=== PATIENT | male | born 1945 | race Caucasian/White ===

== ENCOUNTER 2018-07-21 01:09 | Inpatient (IN) | payer MEDICARE, OTHER ==
[~2018-07-21] VITALS: Ht 167.6 cm; Wt 66.6 kg
[2018-07-21 02:06] VITALS: BP 114/55
[2018-07-21] MEDS ORDERED: OXYB15TA PO (03:34)
[2018-07-21] MEDS ORDERED: ROSU10TA2 PO (03:34)
[2018-07-21] MEDS ORDERED: SULF1TAB23 PO (03:34)
[2018-07-21] MEDS ORDERED: CHOL200040 PO (03:34)
[2018-07-21] MEDS ORDERED: FENO145T30 PO (03:34)
[2018-07-21] MEDS ORDERED: ASPI325T17 PO (03:34)
[2018-07-21] MEDS ORDERED: OMEG1CAP6 PO (03:34)
[2018-07-21] MEDS ORDERED: MULT-658 PO (03:34)
[2018-07-21] MEDS ORDERED: PANT20TA3 PO (03:34)
[2018-07-21] MEDS ORDERED: PREG100C PO (03:34)
[2018-07-21] MEDS ORDERED: morphine SULFATE 10 MG/ML, 1ML IVPush PRN (05:30)
[2018-07-21] MEDS ORDERED: ACETAMINOPHEN 325 MG TABLET PO PRN (05:30)
[2018-07-21] MEDS ORDERED: POLYETHYLENE GLYCOL 17 GM PACKET PO PRN (05:30)
[2018-07-21] MEDS ORDERED: DOCUSATE 100 MG CAPSULE PO PRN (05:30)
[2018-07-21] MEDS ORDERED: hydrALAzine 20 MG/ML, 1ML IVPush PRN (05:30)
[2018-07-21] MEDS ORDERED: PROMETHAZINE 25 MG/ML, 1ML IM PRN (05:30)
[2018-07-21] MEDS ORDERED: ONDANSETRON ODT 4 MG PO PRN (05:30)
[2018-07-21] MEDS ORDERED: ONDANSETRON 2MG/ML, 2ML IVPush PRN (05:30)
[2018-07-21] MEDS ORDERED: OXYcodone IR 5MG TABLET PO PRN (05:30)
[2018-07-21] MEDS ORDERED: BISACODYL 10 MG SUPP PR PRN (05:30)
[2018-07-21] MEDS ORDERED: PLEASE ENTER ALLERGIES MC SCH ×2 (06:00→06:30)
[2018-07-21] MEDS ORDERED: HYDROmorphone 1 MG/ML, 1ML INJ IV PRN (06:00)
[2018-07-21] MEDS: D5%-0.9% NACL 1,000 ML IV SCH ×2 (06:22→22:03)
[2018-07-21] MEDS: AMPICILLIN/SULBACTAM 3 GM in SODIUM CHLORIDE 0.9% 100 ML IV SCH ×3 (06:36→17:46)
[2018-07-21 06:38] LABS: MEAN CORPUSCULAR HGB CONC 32.6 g/dL (33.2-36.2); MEAN CORPUSCULAR VOLUME 92.1 fL (81-97); MEAN PLATELET VOLUME 8.3 fL (7.4-10.4); PLATELET COUNT 178 x10^3/uL (130-400); RED BLOOD COUNT 3.96 x10^6/uL (4.38-5.82); RED CELL DISTRIBUTION WIDTH 14.1 % (9.4-14.8)
[2018-07-21 06:48] LABS: INTERNATIONAL NORMALIZED RATIO 1.25 (0.93-1.1)
[2018-07-21 06:51] LABS: ALANINE AMINOTRANSFERASE 25 U/L (12-78); ALBUMIN 2.7 g/dL (3.4-5.0); ANION GAP 9 mmol/L (5-15); CALCIUM 9.2 mg/dL (8.5-10.1); CHLORIDE 108 mmol/L (98-107)
[2018-07-21 06:59] LABS: BASOPHILS # (AUTO) 0.12 x10^3/uL (0-0.1); BASOPHILS % (AUTO) 1 % (0-1); EOSINOPHILS # (AUTO) 0.09 x10^3/uL (0-0.4); EOSINOPHILS % (AUTO) 1 % (1-7); LYMPHOCYTES # (AUTO) 0.78 x10^3/uL (1-3.4); LYMPHOCYTES % (AUTO) 7 % (22-44); MD SCAN; MONOCYTES # (AUTO) 0.49 x10^3/uL (0.2-0.8); MONOCYTES % (AUTO) 4 % (2-9); NEUTROPHILS # (AUTO) 10.01 x10^3/uL (1.8-6.8); NEUTROPHILS % (AUTO) 87 % (42-75)
[2018-07-21 07:00] LABS: ALKALINE PHOSPHATASE 62 U/L (45-117); BILIRUBIN,TOTAL 0.8 mg/dL (0.2-1.0); CHOL/HDL RATIO 1.9; CHOLESTEROL, TOTAL 71 mg/dL (140-239); CREATININE 0.56 mg/dL (0.7-1.3); FREE T4 (FREE THYROXINE) 1.27 ng/dL (0.76-1.46); HDL CHOL % 52 % (26-37); HDL CHOLESTEROL (DIRECT) 37 mg/dL (40-60); LDL CHOLESTEROL,CALCULATED 11 mg/dL (54-169); LDL/HDL RATIO 0.3 (0.5-3.0); THYROID STIMULATING HORMONE 0.448 mIU/L (0.358-3.740); TOTAL PROTEIN 5.9 g/dL (6.4-8.2); TRIGLYCERIDES 116 mg/dL (50-200); VLDL CHOLESTEROL 23 mg/dL (0-25)
[2018-07-21 07:41] VITALS: BP 121/64
[2018-07-21] MEDS: CHOLECALCIFEROL 1,000 UNIT TABLET PO SCH (08:18)
[2018-07-21] MEDS: NICOTINE 7 MG/24 HR PATCH.TD24 TD SCH (08:18)
[2018-07-21] MEDS: MULTIVITAMIN 1 TABLET PO SCH (08:19)
[2018-07-21] MEDS: ASPIRIN 325 MG TABLET PO SCH (08:19)
[2018-07-21] MEDS: OMEGA-3/FISH OIL CAPSULE PO SCH ×2 (08:19→16:19)
[2018-07-21] MEDS: PANTOPRAZOLE 20MG TABLET PO SCH (08:19)
[2018-07-21] MEDS: PREGABALIN 100 MG CAPSULE PO SCH ×2 (08:19→20:50)
[2018-07-21] MEDS: OXYBUTYNIN CHLORIDE 5 MG TABLET PO SCH ×3 (08:19→20:50)
[2018-07-21] MEDS: HEPARIN 5,000 UNITS/ML, 1ML SQ SCH ×2 (08:22→16:19)
[2018-07-21 08:24] LABS: HEMOGLOBIN A1C 5.1 % (4.2-6.3)
[2018-07-21] MEDS ORDERED: POTASSIUM CHLORIDE 20 MEQ TAB.ER.PRT PO ONE (11:30)
[2018-07-21] MEDS ORDERED: KETOROLAC 30 MG/1 ML ONE (13:09)
[2018-07-21] MEDS ORDERED: KETOROLAC 60 MG/2 ML IVPush ONE (13:30)
[2018-07-21] MEDS ORDERED: KETOROLAC 30 MG/1 ML IVPush ONE (13:30)
[2018-07-21] MEDS ORDERED: HYDROmorphone 2 MG/ML, 1ML ONE (14:00)
[2018-07-21 15:08] VITALS: BP 117/58
[2018-07-21] MEDS ORDERED: FENOFIBRATE 145 MG TABLET PO SCH (16:30)
[2018-07-21] MEDS: HYDROmorphone 2 MG/ML, 1ML IVPush PRN ×2 (17:44→22:03)
[2018-07-21 20:11] VITALS: BP 128/55
[2018-07-21] MEDS ORDERED: ATORVASTATIN 40 MG TABLET PO SCH (21:00)
[2018-07-22 00:14] VITALS: BP 129/51
[2018-07-22] MEDS: HEPARIN 5,000 UNITS/ML, 1ML SQ SCH ×2 (01:18→09:32)
[2018-07-22] MEDS: AMPICILLIN/SULBACTAM 3 GM in SODIUM CHLORIDE 0.9% 100 ML IV SCH ×4 (01:18→23:43)
[2018-07-22 05:29] LABS: MEAN CORPUSCULAR HGB CONC 32.6 g/dL (33.2-36.2); MEAN CORPUSCULAR VOLUME 92.1 fL (81-97); MEAN PLATELET VOLUME 9.4 fL (7.4-10.4); PLATELET COUNT 189 x10^3/uL (130-400); RED BLOOD COUNT 3.83 x10^6/uL (4.38-5.82); RED CELL DISTRIBUTION WIDTH 14.1 % (9.4-14.8)
[2018-07-22 05:38] LABS: ANION GAP 7 mmol/L (5-15); CALCIUM 9.1 mg/dL (8.5-10.1); CHLORIDE 111 mmol/L (98-107)
[2018-07-22 06:09] LABS: BASOPHILS # (AUTO) 0.03 x10^3/uL (0-0.1); BASOPHILS % (AUTO) 0 % (0-1); EOSINOPHILS # (AUTO) 0.15 x10^3/uL (0-0.4); EOSINOPHILS % (AUTO) 1 % (1-7); LYMPHOCYTES # (AUTO) 0.75 x10^3/uL (1-3.4); LYMPHOCYTES % (AUTO) 6 % (22-44); MD SCAN; MONOCYTES # (AUTO) 0.51 x10^3/uL (0.2-0.8); MONOCYTES % (AUTO) 4 % (2-9); NEUTROPHILS # (AUTO) 10.31 x10^3/uL (1.8-6.8); NEUTROPHILS % (AUTO) 88 % (42-75)
[2018-07-22 06:27] VITALS: BP 148/66
[2018-07-22] MEDS: OMEGA-3/FISH OIL CAPSULE PO SCH (08:00)
[2018-07-22] MEDS ORDERED: POTASSIUM CHLORIDE 40 MEQ in SODIUM CHLORIDE 0.9% 500 ML IV ONE (08:00)
[2018-07-22] MEDS: MULTIVITAMIN 1 TABLET PO SCH (09:00)
[2018-07-22] MEDS: CHOLECALCIFEROL 1,000 UNIT TABLET PO SCH (09:00)
[2018-07-22] MEDS: OXYBUTYNIN CHLORIDE 5 MG TABLET PO SCH (09:00)
[2018-07-22] MEDS: ASPIRIN 325 MG TABLET PO SCH (09:00)
[2018-07-22] MEDS: PREGABALIN 100 MG CAPSULE PO SCH (09:00)
[2018-07-22] MEDS: PANTOPRAZOLE 20MG TABLET PO SCH (09:00)
[2018-07-22] MEDS: NICOTINE 7 MG/24 HR PATCH.TD24 TD SCH (09:34)
[2018-07-22] MEDS: D5%-0.9% NACL 1,000 ML IV SCH (11:05)
[2018-07-22] MEDS ORDERED: MAGNESIUM SULFATE PMX 2GM/50ML 50 ML IV ONE (13:30)
[2018-07-22 13:41] VITALS: BP 138/64
[2018-07-22] MEDS: HYDROmorphone 2 MG/ML, 1ML IVPush PRN ×2 (16:04→20:42)
[2018-07-22] MEDS: POTASSIUM CHLORIDE 40 MEQ in D5%-LACTATED RINGERS 1,000 ML IV SCH (17:35)
[2018-07-22] MEDS: FENTANYL 12 MCG PATCH TD SCH (17:35)
[2018-07-22 19:23] VITALS: BP 137/74
[2018-07-23] MEDS: HYDROmorphone 2 MG/ML, 1ML IVPush PRN ×5 (01:01→20:57)
[2018-07-23 01:21] VITALS: BP 148/71
[2018-07-23] MEDS: AMPICILLIN/SULBACTAM 3 GM in SODIUM CHLORIDE 0.9% 100 ML IV SCH ×3 (05:23→17:43)
[2018-07-23] MEDS: POTASSIUM CHLORIDE 40 MEQ in D5%-LACTATED RINGERS 1,000 ML IV SCH (05:23)
[2018-07-23 07:40] VITALS: BP 154/63
[2018-07-23] MEDS: PANTOPRAZOLE 40 MG IV IVPush SCH (09:24)
[2018-07-23] MEDS: NICOTINE 7 MG/24 HR PATCH.TD24 TD SCH (09:25)
[2018-07-23 10:22] LABS: BASOPHILS # (AUTO) 0.03 x10^3/uL (0-0.1); BASOPHILS % (AUTO) 0 % (0-1); EOSINOPHILS # (AUTO) 0.18 x10^3/uL (0-0.4); EOSINOPHILS % (AUTO) 2 % (1-7); LYMPHOCYTES # (AUTO) 0.78 x10^3/uL (1-3.4); LYMPHOCYTES % (AUTO) 8 % (22-44); MD NO; MEAN CORPUSCULAR HEMOGLOBIN 30.8 pg (27.5-34.5); MEAN CORPUSCULAR VOLUME 93.3 fL (81-97); MEAN PLATELET VOLUME 9.1 fL (7.4-10.4); MONOCYTES # (AUTO) 0.49 x10^3/uL (0.2-0.8); MONOCYTES % (AUTO) 5 % (2-9); NEUTROPHILS # (AUTO) 7.94 x10^3/uL (1.8-6.8); NEUTROPHILS % (AUTO) 84 % (42-75); PLATELET COUNT 219 x10^3/uL (130-400); RED BLOOD COUNT 3.92 x10^6/uL (4.38-5.82)
[2018-07-23 10:26] LABS: ANION GAP 4 mmol/L (5-15); CHLORIDE 114 mmol/L (98-107); CREATININE 0.43 mg/dL (0.7-1.3)
[2018-07-23] MEDS ORDERED: POTASSIUM CHLORIDE 40 MEQ in D5%-0.9% NACL 1,000 ML IV SCH (11:00)
[2018-07-23 14:00] VITALS: BP 151/62
[2018-07-23 17:05] VITALS: BP 155/74
[2018-07-23] MEDS: POTASSIUM CHLORIDE 40 MEQ in DEXTROSE 5% 1,000 ML IV SCH (17:43)
[2018-07-23 19:06] VITALS: BP 163/75
[2018-07-23 19:14] LABS: MICROSCOPIC NOT IND
[2018-07-23 19:18] LABS: CULTURE INDICATED? NO
[2018-07-23 21:18] VITALS: BP 157/72
[2018-07-24] MEDS: AMPICILLIN/SULBACTAM 3 GM in SODIUM CHLORIDE 0.9% 100 ML IV SCH ×5 (00:15→23:59)
[2018-07-24] MEDS: HYDROmorphone 2 MG/ML, 1ML IVPush PRN ×7 (00:52→22:19)
[2018-07-24 01:14] VITALS: BP 161/69
[2018-07-24 04:30] LABS: BASOPHILS # (AUTO) 0.02 x10^3/uL (0-0.1); BASOPHILS % (AUTO) 0 % (0-1); EOSINOPHILS # (AUTO) 0.14 x10^3/uL (0-0.4); EOSINOPHILS % (AUTO) 2 % (1-7); LYMPHOCYTES # (AUTO) 0.79 x10^3/uL (1-3.4); LYMPHOCYTES % (AUTO) 10 % (22-44); MD NO; MEAN CORPUSCULAR HEMOGLOBIN 30.8 pg (27.5-34.5); MEAN CORPUSCULAR HGB CONC 33.3 g/dL (33.2-36.2); MEAN CORPUSCULAR VOLUME 92.5 fL (81-97); MEAN PLATELET VOLUME 9.4 fL (7.4-10.4); MONOCYTES # (AUTO) 0.67 x10^3/uL (0.2-0.8); MONOCYTES % (AUTO) 9 % (2-9); NEUTROPHILS # (AUTO) 6.08 x10^3/uL (1.8-6.8); NEUTROPHILS % (AUTO) 79 % (42-75); PLATELET COUNT 201 x10^3/uL (130-400); RED BLOOD COUNT 4.01 x10^6/uL (4.38-5.82); RED CELL DISTRIBUTION WIDTH 13.9 % (9.4-14.8)
[2018-07-24 04:38] LABS: ANION GAP 3 mmol/L (5-15); CALCIUM 9.1 mg/dL (8.5-10.1); CHLORIDE 106 mmol/L (98-107)
[2018-07-24] MEDS: POTASSIUM CHLORIDE 40 MEQ in DEXTROSE 5% 1,000 ML IV SCH ×2 (06:03→18:03)
[2018-07-24 07:10] VITALS: BP 137/59
[2018-07-24] MEDS: NICOTINE 7 MG/24 HR PATCH.TD24 TD SCH (08:39)
[2018-07-24] MEDS: PANTOPRAZOLE 40 MG IV IVPush SCH (08:39)
[2018-07-24 13:20] VITALS: BP 122/57
[2018-07-24] MEDS ORDERED: LIDOCAINE 2%, 6 ML JEL.PF.APP MM ONE (13:35)
[2018-07-24 19:15] VITALS: BP 121/54
[2018-07-25 01:06] VITALS: BP 139/65
[2018-07-25] MEDS: HYDROmorphone 2 MG/ML, 1ML IVPush PRN ×5 (02:14→22:15)
[2018-07-25] MEDS: POTASSIUM CHLORIDE 40 MEQ in DEXTROSE 5% 1,000 ML IV SCH ×2 (04:43→18:18)
[2018-07-25] MEDS: AMPICILLIN/SULBACTAM 3 GM in SODIUM CHLORIDE 0.9% 100 ML IV SCH ×3 (06:02→18:18)
[2018-07-25 06:26] VITALS: BP 133/52
[2018-07-25] MEDS: NICOTINE 7 MG/24 HR PATCH.TD24 TD SCH (10:40)
[2018-07-25] MEDS: PANTOPRAZOLE 40 MG IV IVPush SCH (10:40)
[2018-07-25 12:20] VITALS: BP 142/57
[2018-07-25] MEDS: FENTANYL 12 MCG PATCH TD SCH (15:12)
[2018-07-25 20:10] VITALS: BP 111/63
[2018-07-26] MEDS: AMPICILLIN/SULBACTAM 3 GM in SODIUM CHLORIDE 0.9% 100 ML IV SCH ×4 (00:30→19:51)
[2018-07-26 00:38] VITALS: BP 145/77
[2018-07-26] MEDS: HYDROmorphone 2 MG/ML, 1ML IVPush PRN ×3 (03:37→19:51)
[2018-07-26 04:31] LABS: BASOPHILS # (AUTO) 0.01 x10^3/uL (0-0.1); BASOPHILS % (AUTO) 0 % (0-1); EOSINOPHILS # (AUTO) 0.08 x10^3/uL (0-0.4); EOSINOPHILS % (AUTO) 1 % (1-7); LYMPHOCYTES % (AUTO) 12 % (22-44); MD NO; MEAN CORPUSCULAR HEMOGLOBIN 30.7 pg (27.5-34.5); MEAN CORPUSCULAR HGB CONC 33.4 g/dL (33.2-36.2); MEAN CORPUSCULAR VOLUME 92.2 fL (81-97); MEAN PLATELET VOLUME 9.9 fL (7.4-10.4); MONOCYTES # (AUTO) 0.65 x10^3/uL (0.2-0.8); MONOCYTES % (AUTO) 9 % (2-9); NEUTROPHILS # (AUTO) 5.74 x10^3/uL (1.8-6.8); NEUTROPHILS % (AUTO) 78 % (42-75); PLATELET COUNT 212 x10^3/uL (130-400); RED BLOOD COUNT 4.16 x10^6/uL (4.38-5.82); RED CELL DISTRIBUTION WIDTH 13.6 % (9.4-14.8)
[2018-07-26 04:44] LABS: ANION GAP 2 mmol/L (5-15); CALCIUM 9.2 mg/dL (8.5-10.1); CHLORIDE 102 mmol/L (98-107)
[2018-07-26 04:45] LABS: CREATININE 0.34 mg/dL (0.7-1.3)
[2018-07-26] MEDS: POTASSIUM CHLORIDE 40 MEQ in DEXTROSE 5% 1,000 ML IV SCH ×2 (06:31→20:14)
[2018-07-26 07:32] VITALS: BP 152/73
[2018-07-26] MEDS: NICOTINE 7 MG/24 HR PATCH.TD24 TD SCH (09:58)
[2018-07-26] MEDS: PANTOPRAZOLE 40 MG IV IVPush SCH (09:59)
[2018-07-26 13:43] VITALS: BP 137/73
[2018-07-26] MEDS ORDERED: LIDOCAINE 1%, 20ML ONE (14:33)
[2018-07-26] MEDS ORDERED: LIDOCAINE-MPF 1%, 5ML ONE ×2 (14:33)
[2018-07-26] MEDS ORDERED: LIDOCAINE 2%, 6 ML JEL.PF.APP MM ONE (14:35)
[2018-07-26] MEDS ORDERED: FENTANYL PF 100 MCG/2ML ONE (15:06)
[2018-07-26] MEDS ORDERED: FLUMAZENIL 0.1 MG/1 ML, 5ML ONE (15:06)
[2018-07-26] MEDS ORDERED: MIDAZOLAM 1 MG/ML, 5ML ONE (15:06)
[2018-07-26] MEDS ORDERED: NALOXONE 1 MG/ML, 2ML ONE (15:06)
[2018-07-26] MEDS ORDERED: EPINEPHRINE 1 MG/ML, 1ML ONE (17:28)
[2018-07-26] MEDS ORDERED: BUPIVACAINE/PF 0.5% ONE (17:28)
[2018-07-26 19:57] VITALS: BP 125/78
[2018-07-27] MEDS: HYDROmorphone 2 MG/ML, 1ML IVPush PRN ×6 (00:24→23:52)
[2018-07-27 00:47] VITALS: BP 106/69
[2018-07-27] MEDS: AMPICILLIN/SULBACTAM 3 GM in SODIUM CHLORIDE 0.9% 100 ML IV SCH ×4 (02:37→19:53)
[2018-07-27 04:09] LABS: BASOPHILS # (AUTO) 0.07 x10^3/uL (0-0.1); BASOPHILS % (AUTO) 1 % (0-1); EOSINOPHILS % (AUTO) 1 % (1-7); LYMPHOCYTES # (AUTO) 1.01 x10^3/uL (1-3.4); LYMPHOCYTES % (AUTO) 13 % (22-44); MD NO; MEAN CORPUSCULAR HEMOGLOBIN 30.3 pg (27.5-34.5); MEAN CORPUSCULAR HGB CONC 32.9 g/dL (33.2-36.2); MEAN CORPUSCULAR VOLUME 92.2 fL (81-97); MONOCYTES # (AUTO) 0.65 x10^3/uL (0.2-0.8); MONOCYTES % (AUTO) 9 % (2-9); NEUTROPHILS # (AUTO) 5.77 x10^3/uL (1.8-6.8); NEUTROPHILS % (AUTO) 76 % (42-75); PLATELET COUNT 240 x10^3/uL (130-400); RED BLOOD COUNT 4.23 x10^6/uL (4.38-5.82); RED CELL DISTRIBUTION WIDTH 13.8 % (9.4-14.8)
[2018-07-27 04:21] LABS: ALBUMIN 2.6 g/dL (3.4-5.0); ANION GAP 6 mmol/L (5-15); CALCIUM 9.5 mg/dL (8.5-10.1); CHLORIDE 99 mmol/L (98-107); CREATININE 0.46 mg/dL (0.7-1.3)
[2018-07-27 08:56] VITALS: BP 155/68
[2018-07-27] MEDS: NICOTINE 7 MG/24 HR PATCH.TD24 TD SCH (10:18)
[2018-07-27] MEDS: POTASSIUM CHLORIDE 40 MEQ in DEXTROSE 5% 1,000 ML IV SCH ×2 (10:19→22:55)
[2018-07-27] MEDS: PANTOPRAZOLE 40 MG IV IVPush SCH (10:19)
[2018-07-27 15:44] VITALS: BP 144/71
[2018-07-27] MEDS ORDERED: MAGNESIUM SULFATE PMX 2GM/50ML 50 ML IV ONE (18:00)
[2018-07-27] MEDS ORDERED: GADOBUTROL 7.5 MMOL/7.5 ML PFS ONE (18:23)
[2018-07-27 19:06] VITALS: BP 138/67
[2018-07-28 01:45] VITALS: BP 132/62
[2018-07-28] MEDS: AMPICILLIN/SULBACTAM 3 GM in SODIUM CHLORIDE 0.9% 100 ML IV SCH ×4 (02:10→21:24)
[2018-07-28] MEDS: HYDROmorphone 2 MG/ML, 1ML IVPush PRN ×4 (05:35→20:22)
[2018-07-28 07:46] VITALS: BP 131/57
[2018-07-28] MEDS: POTASSIUM CHLORIDE 40 MEQ in DEXTROSE 5% 1,000 ML IV SCH ×2 (08:31→20:11)
[2018-07-28] MEDS: PANTOPRAZOLE 40 MG IV IVPush SCH (08:37)
[2018-07-28] MEDS: NICOTINE 7 MG/24 HR PATCH.TD24 TD SCH (08:38)
[2018-07-28] MEDS: FENTANYL 12 MCG PATCH TD SCH (13:30)
[2018-07-28 14:13] VITALS: BP 119/68
[2018-07-28 19:58] VITALS: BP 124/73
[2018-07-29 01:43] VITALS: BP 117/68
[2018-07-29] MEDS: AMPICILLIN/SULBACTAM 3 GM in SODIUM CHLORIDE 0.9% 100 ML IV SCH ×2 (03:05→10:17)
[2018-07-29] MEDS: POTASSIUM CHLORIDE 40 MEQ in DEXTROSE 5% 1,000 ML IV SCH ×2 (05:34→21:19)
[2018-07-29] MEDS: HYDROmorphone 2 MG/ML, 1ML IVPush PRN ×3 (05:39→14:13)
[2018-07-29] MEDS: PANTOPRAZOLE 40 MG IV IVPush SCH (08:34)
[2018-07-29] MEDS: NICOTINE 7 MG/24 HR PATCH.TD24 TD SCH (08:34)
[2018-07-29 08:45] VITALS: BP 135/72
[2018-07-29 14:58] VITALS: BP 125/72
[2018-07-29] MEDS ORDERED: BUPIVACAINE/EPI 0.5% 1:200K ONE (17:10)
[2018-07-29] MEDS ORDERED: MIDAZOLAM 1 MG/ML, 2ML ONE ×2 (17:25→17:34)
[2018-07-29] MEDS ORDERED: FENTANYL PF 100 MCG/2ML ONE (17:25)
[2018-07-29] MEDS ORDERED: CEFAZOLIN 1,000 MG ONE (17:35)
[2018-07-29] MEDS ORDERED: DEXAMETHASONE 4 MG/ML, 1ML ONE (17:36)
[2018-07-29] MEDS ORDERED: ROCURONIUM 10MG/ML,5ML ONE (17:36)
[2018-07-29] MEDS ORDERED: PROPOFOL 10 MG/ML, 20ML ONE (17:36)
[2018-07-29] MEDS ORDERED: ONDANSETRON 2MG/ML, 2ML ONE (17:36)
[2018-07-29] MEDS ORDERED: SUCCINYLCHOLINE 20 MG/ML, 10ML ONE (17:36)
[2018-07-29] MEDS ORDERED: LIDOCAINE 2%, 6 ML JEL.PF.APP MM ONE (17:37)
[2018-07-29] MEDS ORDERED: SUGAMMADEX 200 MG/2 ML IVPush ONE (17:54)
[2018-07-29] MEDS ORDERED: ONDANSETRON 2MG/ML, 2ML IV PRN (18:00)
[2018-07-29] MEDS ORDERED: DIAZEPAM 5 MG/ML, 2ML IVPush PRN (18:00)
[2018-07-29] MEDS ORDERED: MEPERIDINE/PF 25MG/0.5ML IVPush PRN (18:00)
[2018-07-29] MEDS ORDERED: hydrALAzine 20 MG/ML, 1ML IV PRN (18:00)
[2018-07-29] MEDS ORDERED: MORPHINE SULFATE 4 MG/ML, 1ML IVPush PRN (18:00)
[2018-07-29] MEDS ORDERED: EPHEDRINE 50 MG/ML, 1ML IVPush PRN (18:00)
[2018-07-29] MEDS ORDERED: FENTANYL PF 100 MCG/2ML IV PRN (18:00)
[2018-07-29] MEDS ORDERED: LABETALOL 5MG/ML, 20ML IV PRN (18:00)
[2018-07-29] MEDS ORDERED: OXYcodone 5 MG/5 ML ORAL.SOL UDC PO PRN (18:00)
[2018-07-29] MEDS ORDERED: HYDROmorphone 2 MG/ML, 1ML IVPush PRN (18:00)
[2018-07-29] MEDS ORDERED: ALBUTEROL SULFATE 2.5 MG/3 ML NPPB PRN (18:00)
[2018-07-29] MEDS ORDERED: PROMETHAZINE 25 MG/ML, 1ML IV PRN (18:00)
[2018-07-29] MEDS ORDERED: PROMETHAZINE 12.5 MG SUPP PR PRN (18:00)
[2018-07-29] MEDS ORDERED: MIDAZOLAM 1 MG/ML, 2ML IV PRN (18:00)
[2018-07-29] MEDS ORDERED: HALOPERIDOL 5 MG/ML IV PRN (18:00)
[2018-07-29] MEDS ORDERED: ONDANSETRON ODT 8 MG PO PRN (18:00)
[2018-07-29 18:57] VITALS: BP 158/69
[2018-07-30 01:11] VITALS: BP 108/64
[2018-07-30] MEDS: HYDROmorphone 2 MG/ML, 1ML IVPush PRN ×3 (01:55→15:15)
[2018-07-30 08:10] LABS: MEAN CORPUSCULAR HEMOGLOBIN 29.9 pg (27.5-34.5); MEAN CORPUSCULAR HGB CONC 32.9 g/dL (33.2-36.2); MEAN CORPUSCULAR VOLUME 90.9 fL (81-97); MEAN PLATELET VOLUME 8.6 fL (7.4-10.4); PLATELET COUNT 315 x10^3/uL (130-400); RED BLOOD COUNT 4.55 x10^6/uL (4.38-5.82); RED CELL DISTRIBUTION WIDTH 13.7 % (9.4-14.8)
[2018-07-30 08:12] LABS: ALBUMIN 2.9 g/dL (3.4-5.0); ANION GAP 4 mmol/L (5-15); CALCIUM 10.3 mg/dL (8.5-10.1); CHLORIDE 97 mmol/L (98-107)
[2018-07-30 08:17] LABS: ALANINE AMINOTRANSFERASE 29 U/L (12-78); ALKALINE PHOSPHATASE 181 U/L (45-117); CREATININE 0.45 mg/dL (0.7-1.3); TOTAL PROTEIN 7.1 g/dL (6.4-8.2)
[2018-07-30 08:26] VITALS: BP 131/76
[2018-07-30 08:27] LABS: BASOPHILS # (AUTO) 0.03 x10^3/uL (0-0.1); BASOPHILS % (AUTO) 0 % (0-1); EOSINOPHILS # (AUTO) 0.01 x10^3/uL (0-0.4); EOSINOPHILS % (AUTO) 0 % (1-7); LYMPHOCYTES # (AUTO) 0.86 x10^3/uL (1-3.4); LYMPHOCYTES % (AUTO) 8 % (22-44); MD SCAN; MONOCYTES % (AUTO) 4 % (2-9); NEUTROPHILS # (AUTO) 9.55 x10^3/uL (1.8-6.8); NEUTROPHILS % (AUTO) 88 % (42-75)
[2018-07-30 08:28] LABS: HEMOGRAM NOTE RECHECKED
[2018-07-30] MEDS: POTASSIUM CHLORIDE 40 MEQ in DEXTROSE 5% 1,000 ML IV SCH ×2 (09:07→20:48)
[2018-07-30] MEDS: PANTOPRAZOLE 40 MG IV IVPush SCH (09:07)
[2018-07-30] MEDS: NICOTINE 7 MG/24 HR PATCH.TD24 TD SCH (09:09)
[2018-07-30 14:31] VITALS: BP 137/70
[2018-07-30 18:50] VITALS: BP 145/77
[2018-07-31] MEDS: HYDROmorphone 2 MG/ML, 1ML IVPush PRN ×4 (01:00→18:45)
[2018-07-31 01:47] VITALS: BP 107/67
[2018-07-31] MEDS: POTASSIUM CHLORIDE 40 MEQ in DEXTROSE 5% 1,000 ML IV SCH ×2 (07:57→21:16)
[2018-07-31 08:17] VITALS: BP 107/71
[2018-07-31] MEDS: PANTOPRAZOLE 40 MG IV IVPush SCH (10:09)
[2018-07-31] MEDS: NICOTINE 7 MG/24 HR PATCH.TD24 TD SCH (10:09)
[2018-07-31] MEDS ORDERED: FENTANYL PF 250 MCG/5ML ONE (11:40)
[2018-07-31] MEDS ORDERED: MEPERIDINE/PF 25MG/0.5ML IVPush PRN (12:30)
[2018-07-31] MEDS ORDERED: PROMETHAZINE 25 MG/ML, 1ML IV PRN (12:30)
[2018-07-31] MEDS ORDERED: OXYcodone 5 MG/5 ML ORAL.SOL UDC PO PRN (12:30)
[2018-07-31] MEDS ORDERED: LABETALOL 5MG/ML, 20ML IV PRN (12:30)
[2018-07-31] MEDS ORDERED: METOCLOPRAMIDE 5 MG/ML, 2ML IV PRN (12:30)
[2018-07-31] MEDS ORDERED: hydrALAzine 20 MG/ML, 1ML IV PRN (12:30)
[2018-07-31] MEDS ORDERED: HYDROmorphone 1 MG/ML, 1ML INJ IV PRN (12:30)
[2018-07-31] MEDS ORDERED: FENTANYL PF 100 MCG/2ML IV PRN (12:30)
[2018-07-31] MEDS ORDERED: ONDANSETRON 2MG/ML, 2ML IVPush PRN (12:30)
[2018-07-31] MEDS ORDERED: ALBUTEROL SULFATE 2.5 MG/3 ML NPPB PRN (12:30)
[2018-07-31] MEDS ORDERED: KETOROLAC 30 MG/1 ML IV PRN (12:30)
[2018-07-31 13:29] VITALS: BP 123/70
[2018-07-31] MEDS: FENTANYL 12 MCG PATCH TD SCH (14:06)
[2018-07-31 16:49] LABS: MICROSCOPIC INDICATED
[2018-07-31 21:05] VITALS: BP 129/72
[2018-08-01] MEDS: HYDROmorphone 2 MG/ML, 1ML IVPush PRN ×5 (00:16→23:16)
[2018-08-01 01:57] VITALS: BP 129/68
[2018-08-01 07:59] VITALS: BP 116/65
[2018-08-01] MEDS: POTASSIUM CHLORIDE 40 MEQ in DEXTROSE 5% 1,000 ML IV SCH ×2 (08:28→19:04)
[2018-08-01] MEDS: PANTOPRAZOLE 40 MG IV IVPush SCH (09:00)
[2018-08-01] MEDS: NICOTINE 7 MG/24 HR PATCH.TD24 TD SCH (11:15)
[2018-08-01] MEDS: ESOMEPRAZOLE 40 MG IV IVPush SCH (13:18)
[2018-08-01 17:40] VITALS: BP 149/73
[2018-08-01 19:54] VITALS: BP 147/77
[2018-08-02 01:38] VITALS: BP 127/68
[2018-08-02] MEDS: HYDROmorphone 2 MG/ML, 1ML IVPush PRN ×4 (03:08→23:18)
[2018-08-02 04:48] LABS: BASOPHILS # (AUTO) 0.08 x10^3/uL (0-0.1); BASOPHILS % (AUTO) 1 % (0-1); EOSINOPHILS # (AUTO) 0.11 x10^3/uL (0-0.4); EOSINOPHILS % (AUTO) 1 % (1-7); LYMPHOCYTES # (AUTO) 0.93 x10^3/uL (1-3.4); LYMPHOCYTES % (AUTO) 9 % (22-44); MD NO; MEAN CORPUSCULAR HEMOGLOBIN 30.9 pg (27.5-34.5); MEAN CORPUSCULAR HGB CONC 33.2 g/dL (33.2-36.2); MEAN CORPUSCULAR VOLUME 93.1 fL (81-97); MEAN PLATELET VOLUME 8.9 fL (7.4-10.4); MONOCYTES # (AUTO) 0.67 x10^3/uL (0.2-0.8); MONOCYTES % (AUTO) 6 % (2-9); NEUTROPHILS # (AUTO) 8.74 x10^3/uL (1.8-6.8); NEUTROPHILS % (AUTO) 83 % (42-75); PLATELET COUNT 360 x10^3/uL (130-400); RED BLOOD COUNT 4.58 x10^6/uL (4.38-5.82); RED CELL DISTRIBUTION WIDTH 13.6 % (9.4-14.8)
[2018-08-02 04:59] LABS: ALANINE AMINOTRANSFERASE 25 U/L (12-78); ANION GAP 5 mmol/L (5-15); CALCIUM 9.9 mg/dL (8.5-10.1); CHLORIDE 96 mmol/L (98-107)
[2018-08-02 05:02] LABS: ALKALINE PHOSPHATASE 142 U/L (45-117); BILIRUBIN,TOTAL 0.9 mg/dL (0.2-1.0); CREATININE 0.49 mg/dL (0.7-1.3); TOTAL PROTEIN 6.9 g/dL (6.4-8.2)
[2018-08-02] MEDS: POTASSIUM CHLORIDE 40 MEQ in DEXTROSE 5% 1,000 ML IV SCH ×2 (05:55→16:26)
[2018-08-02] MEDS: PANTOPRAZOLE GRAN. PKT 40 MG PO SCH (06:05)
[2018-08-02 07:31] VITALS: BP 128/67
[2018-08-02] MEDS: ESOMEPRAZOLE 40 MG IV IVPush SCH (10:37)
[2018-08-02] MEDS: NICOTINE 7 MG/24 HR PATCH.TD24 TD SCH (10:37)
[2018-08-02 12:02] VITALS: BP 127/77
[2018-08-02] MEDS ORDERED: MAGNESIUM CITRATE 300ML ORAL SOL PO ONE (17:00)
[2018-08-02 19:50] VITALS: BP 123/71
[2018-08-03 01:16] VITALS: BP 115/68
[2018-08-03] MEDS: PANTOPRAZOLE GRAN. PKT 40 MG PO SCH (05:14)
[2018-08-03 05:43] LABS: BASOPHILS # (AUTO) 0.05 x10^3/uL (0-0.1); BASOPHILS % (AUTO) 1 % (0-1); EOSINOPHILS # (AUTO) 0.06 x10^3/uL (0-0.4); EOSINOPHILS % (AUTO) 1 % (1-7); LYMPHOCYTES # (AUTO) 0.95 x10^3/uL (1-3.4); LYMPHOCYTES % (AUTO) 10 % (22-44); MD NO; MEAN CORPUSCULAR HEMOGLOBIN 30.5 pg (27.5-34.5); MEAN CORPUSCULAR HGB CONC 33.2 g/dL (33.2-36.2); MEAN CORPUSCULAR VOLUME 91.9 fL (81-97); MEAN PLATELET VOLUME 8.3 fL (7.4-10.4); MONOCYTES # (AUTO) 0.78 x10^3/uL (0.2-0.8); MONOCYTES % (AUTO) 8 % (2-9); NEUTROPHILS % (AUTO) 81 % (42-75); PLATELET COUNT 353 x10^3/uL (130-400); RED BLOOD COUNT 4.52 x10^6/uL (4.38-5.82); RED CELL DISTRIBUTION WIDTH 13.6 % (9.4-14.8)
[2018-08-03 06:02] LABS: ALANINE AMINOTRANSFERASE 23 U/L (12-78); ANION GAP 3 mmol/L (5-15); CALCIUM 10.3 mg/dL (8.5-10.1); CHLORIDE 96 mmol/L (98-107)
[2018-08-03 06:05] LABS: ALKALINE PHOSPHATASE 131 U/L (45-117); BILIRUBIN,TOTAL 0.9 mg/dL (0.2-1.0); CREATININE 0.43 mg/dL (0.7-1.3); TOTAL PROTEIN 6.8 g/dL (6.4-8.2)
[2018-08-03] MEDS: POTASSIUM CHLORIDE 40 MEQ in DEXTROSE 5% 1,000 ML IV SCH ×3 (06:07→22:00)
[2018-08-03] MEDS ORDERED: PEDS NS BOLUS IV.SOLN 20ML/KG IVBOLUS ONE (06:30)
[2018-08-03 06:32] VITALS: BP 139/76
[2018-08-03] MEDS ORDERED: FENTANYL PF 100 MCG/2ML ONE (12:00)
[2018-08-03] MEDS ORDERED: MIDAZOLAM 1 MG/ML, 5ML ONE (12:00)
[2018-08-03] MEDS ORDERED: SIMETHICONE DROPS 40 MG/0.6 ML BOTTLE ONE (12:00)
[2018-08-03 14:42] VITALS: BP 121/70
[2018-08-03] MEDS: HYDROmorphone 2 MG/ML, 1ML IVPush PRN ×3 (15:14→23:45)
[2018-08-03] MEDS: FENTANYL 12 MCG PATCH TD SCH (15:27)
[2018-08-03] MEDS: NICOTINE 7 MG/24 HR PATCH.TD24 TD SCH (15:27)
[2018-08-03] MEDS: ESOMEPRAZOLE 40 MG IV IVPush SCH (15:28)
[2018-08-03 18:50] VITALS: BP 130/74
[2018-08-03 23:47] VITALS: BP 119/68
[2018-08-04] MEDS: HYDROmorphone 2 MG/ML, 1ML IVPush PRN ×6 (00:09→20:22)
[2018-08-04] MEDS: PANTOPRAZOLE GRAN. PKT 40 MG PO SCH (04:09)
[2018-08-04 04:40] LABS: BASOPHILS # (AUTO) 0.04 x10^3/uL (0-0.1); BASOPHILS % (AUTO) 1 % (0-1); EOSINOPHILS # (AUTO) 0.15 x10^3/uL (0-0.4); EOSINOPHILS % (AUTO) 2 % (1-7); LYMPHOCYTES # (AUTO) 0.94 x10^3/uL (1-3.4); LYMPHOCYTES % (AUTO) 12 % (22-44); MD NO; MEAN CORPUSCULAR HGB CONC 33.2 g/dL (33.2-36.2); MEAN CORPUSCULAR VOLUME 93.5 fL (81-97); MEAN PLATELET VOLUME 8.5 fL (7.4-10.4); MONOCYTES # (AUTO) 0.65 x10^3/uL (0.2-0.8); MONOCYTES % (AUTO) 9 % (2-9); NEUTROPHILS # (AUTO) 5.78 x10^3/uL (1.8-6.8); NEUTROPHILS % (AUTO) 77 % (42-75); PLATELET COUNT 342 x10^3/uL (130-400); RED BLOOD COUNT 4.24 x10^6/uL (4.38-5.82); RED CELL DISTRIBUTION WIDTH 13.7 % (9.4-14.8)
[2018-08-04 04:45] LABS: ALBUMIN 2.8 g/dL (3.4-5.0); ANION GAP 2 mmol/L (5-15); CALCIUM 9.9 mg/dL (8.5-10.1); CHLORIDE 97 mmol/L (98-107)
[2018-08-04 04:48] LABS: ALANINE AMINOTRANSFERASE 23 U/L (12-78); ALKALINE PHOSPHATASE 117 U/L (45-117); BILIRUBIN,TOTAL 0.9 mg/dL (0.2-1.0); CREATININE 0.54 mg/dL (0.7-1.3); TOTAL PROTEIN 6.4 g/dL (6.4-8.2)
[2018-08-04 07:18] VITALS: BP 110/59
[2018-08-04] MEDS: POTASSIUM CHLORIDE 40 MEQ in DEXTROSE 5% 1,000 ML IV SCH ×2 (07:52→17:47)
[2018-08-04] MEDS: ESOMEPRAZOLE 40 MG IV IVPush SCH (07:52)
[2018-08-04] MEDS: NICOTINE 7 MG/24 HR PATCH.TD24 TD SCH (07:54)
[2018-08-04 12:36] VITALS: BP 126/64
[2018-08-04 21:00] VITALS: BP 120/63
[2018-08-05] MEDS: HYDROmorphone 2 MG/ML, 1ML IVPush PRN ×5 (00:46→23:21)
[2018-08-05 01:04] VITALS: BP 117/63
[2018-08-05] MEDS: POTASSIUM CHLORIDE 40 MEQ in DEXTROSE 5% 1,000 ML IV SCH ×2 (04:27→14:18)
[2018-08-05] MEDS ORDERED: PANTOPRAZOLE GRAN. PKT 40 MG PO SCH (06:00)
[2018-08-05] MEDS: NICOTINE 7 MG/24 HR PATCH.TD24 TD SCH (07:33)
[2018-08-05 08:18] VITALS: BP 126/72
[2018-08-05] MEDS ORDERED: PANTOPRAZOLE 40 MG IV IVPush SCH (09:00)
[2018-08-05 13:45] VITALS: BP 120/67
[2018-08-05 19:30] VITALS: BP 118/67
[2018-08-06 00:09] VITALS: BP 105/55
[2018-08-06] MEDS: POTASSIUM CHLORIDE 40 MEQ in DEXTROSE 5% 1,000 ML IV SCH ×2 (02:50→13:24)
[2018-08-06] MEDS: HYDROmorphone 2 MG/ML, 1ML IVPush PRN ×5 (03:21→19:59)
[2018-08-06] MEDS: PANTOPRAZOLE 40 MG IV IVPush SCH (06:38)
[2018-08-06 07:46] VITALS: BP 102/61
[2018-08-06] MEDS: NICOTINE 7 MG/24 HR PATCH.TD24 TD SCH (07:55)
--- NOTE | 2018-08-06 09:33 | NUR ---
GROUND TEXTURE, THIN LIQUIDS, NO STRAWS - RN INFORMED AND SWALLOW PRECAUTION SIGN UPDATED Addendum: 08/06/18 at 0934 by Irene SHEIKH Amended: Links added. Addendum: 08/06/18 at 0954 by Irene SHEIKH DISREGARD LINK NOTE, JET SKI MECHANIC ERROR, LINKED TO INCORRECT PATIENT, PT CONT TO BE NPO
--- NOTE | 2018-08-06 10:13 | NUR ---
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
[2018-08-06] MEDS: FENTANYL 12 MCG PATCH TD SCH (13:22)
[2018-08-06 15:00] VITALS: BP 127/64
[2018-08-06 18:59] VITALS: BP 130/66
[2018-08-07] MEDS: POTASSIUM CHLORIDE 40 MEQ in DEXTROSE 5% 1,000 ML IV SCH ×3 (00:01→18:55)
[2018-08-07] MEDS: HYDROmorphone 2 MG/ML, 1ML IVPush PRN ×7 (00:05→21:45)
[2018-08-07 00:25] VITALS: BP 111/69
[2018-08-07] MEDS: PANTOPRAZOLE 40 MG IV IVPush SCH (05:40)
[2018-08-07 07:27] VITALS: BP 126/64
[2018-08-07] MEDS: NICOTINE 7 MG/24 HR PATCH.TD24 TD SCH (07:58)
[2018-08-07 12:38] VITALS: BP 116/53
[2018-08-07 20:03] VITALS: BP 118/59
[2018-08-08] MEDS: HYDROmorphone 2 MG/ML, 1ML IVPush PRN ×8 (00:33→23:24)
[2018-08-08 00:43] VITALS: BP 123/61
[2018-08-08] MEDS: POTASSIUM CHLORIDE 40 MEQ in DEXTROSE 5% 1,000 ML IV SCH ×2 (05:12→16:18)
[2018-08-08] MEDS: PANTOPRAZOLE 40 MG IV IVPush SCH (05:39)
[2018-08-08 06:49] VITALS: BP 140/64
[2018-08-08] MEDS: NICOTINE 7 MG/24 HR PATCH.TD24 TD SCH (10:17)
[2018-08-08 12:14] VITALS: BP 110/66
[2018-08-08 19:00] VITALS: BP 119/66
[2018-08-09 01:16] VITALS: BP 131/77
[2018-08-09] MEDS: POTASSIUM CHLORIDE 40 MEQ in DEXTROSE 5% 1,000 ML IV SCH ×3 (01:57→20:55)
[2018-08-09] MEDS: HYDROmorphone 2 MG/ML, 1ML IVPush PRN ×5 (02:21→20:55)
[2018-08-09] MEDS: PANTOPRAZOLE 40 MG IV IVPush SCH (05:36)
[2018-08-09 07:19] VITALS: BP 129/76
[2018-08-09] MEDS: FENTANYL 50 MCG PATCH TD SCH (08:20)
[2018-08-09] MEDS: NICOTINE 7 MG/24 HR PATCH.TD24 TD SCH (08:21)
[2018-08-09] MEDS: ENOXAPARIN 40 MG/0.4 ML SQ SCH (10:05)
[2018-08-09 13:30] VITALS: BP 116/59
[2018-08-09 18:37] VITALS: BP 106/57
[2018-08-10] MEDS: HYDROmorphone 2 MG/ML, 1ML IVPush PRN ×5 (00:17→22:09)
[2018-08-10 01:08] VITALS: BP 112/57
[2018-08-10] MEDS: PANTOPRAZOLE 40 MG IV IVPush SCH (06:11)
[2018-08-10] MEDS: POTASSIUM CHLORIDE 40 MEQ in DEXTROSE 5% 1,000 ML IV SCH ×2 (06:11→18:27)
[2018-08-10 07:06] LABS: BASOPHILS # (AUTO) 0.11 x10^3/uL (0-0.1); BASOPHILS % (AUTO) 1 % (0-1); EOSINOPHILS # (AUTO) 0.24 x10^3/uL (0-0.4); EOSINOPHILS % (AUTO) 3 % (1-7); LYMPHOCYTES # (AUTO) 1.06 x10^3/uL (1-3.4); LYMPHOCYTES % (AUTO) 13 % (22-44); MD NO; MEAN CORPUSCULAR HGB CONC 32.9 g/dL (33.2-36.2); MEAN CORPUSCULAR VOLUME 91.2 fL (81-97); MEAN PLATELET VOLUME 8.5 fL (7.4-10.4); MONOCYTES # (AUTO) 0.61 x10^3/uL (0.2-0.8); MONOCYTES % (AUTO) 8 % (2-9); NEUTROPHILS # (AUTO) 6.08 x10^3/uL (1.8-6.8); NEUTROPHILS % (AUTO) 75 % (42-75); PLATELET COUNT 285 x10^3/uL (130-400); RED BLOOD COUNT 4.13 x10^6/uL (4.38-5.82)
[2018-08-10 07:15] LABS: ALANINE AMINOTRANSFERASE 31 U/L (12-78); ALBUMIN 2.8 g/dL (3.4-5.0); ANION GAP 6 mmol/L (5-15); CALCIUM 9.5 mg/dL (8.5-10.1); CHLORIDE 95 mmol/L (98-107); CREATININE 0.38 mg/dL (0.7-1.3)
[2018-08-10 07:17] LABS: ALKALINE PHOSPHATASE 104 U/L (45-117); BILIRUBIN,TOTAL 0.6 mg/dL (0.2-1.0); TOTAL PROTEIN 6.4 g/dL (6.4-8.2)
[2018-08-10 07:57] VITALS: BP 142/71
[2018-08-10] MEDS: NICOTINE 7 MG/24 HR PATCH.TD24 TD SCH (09:00)
[2018-08-10] MEDS: ENOXAPARIN 40 MG/0.4 ML SQ SCH (09:00)
[2018-08-10 13:19] VITALS: BP 111/67
[2018-08-10] MEDS: OXYcodone 5 MG/5 ML ORAL.SOL UDC GT PRN (19:34)
[2018-08-10 20:48] VITALS: BP 126/66
[2018-08-11] MEDS: HYDROmorphone 2 MG/ML, 1ML IVPush PRN (01:19)
[2018-08-11 01:37] VITALS: BP 120/65
[2018-08-11] MEDS: POTASSIUM CHLORIDE 40 MEQ in DEXTROSE 5% 1,000 ML IV SCH (03:21)
[2018-08-11] MEDS: OXYcodone 5 MG/5 ML ORAL.SOL UDC GT PRN ×5 (05:16→23:57)
[2018-08-11] MEDS: PANTOPRAZOLE 40 MG IV IVPush SCH (05:16)
[2018-08-11 07:07] VITALS: BP 126/64
[2018-08-11] MEDS: ENOXAPARIN 40 MG/0.4 ML SQ SCH (08:54)
[2018-08-11] MEDS: NICOTINE 7 MG/24 HR PATCH.TD24 TD SCH (08:55)
[2018-08-11 13:56] VITALS: BP 124/66
[2018-08-11 18:49] VITALS: BP 117/62
[2018-08-12 00:32] VITALS: BP 115/65
[2018-08-12] MEDS: OXYcodone 5 MG/5 ML ORAL.SOL UDC GT PRN ×5 (04:04→20:52)
[2018-08-12] MEDS: PANTOPRAZOLE 40 MG IV IVPush SCH (06:21)
[2018-08-12 07:16] VITALS: BP 110/57
[2018-08-12] MEDS: NICOTINE 7 MG/24 HR PATCH.TD24 TD SCH (08:08)
[2018-08-12] MEDS: FENTANYL 50 MCG PATCH TD SCH (08:08)
[2018-08-12] MEDS: ENOXAPARIN 40 MG/0.4 ML SQ SCH (08:19)
[2018-08-12 12:12] VITALS: BP 119/92
[2018-08-12 15:07] LABS: CREATININE 0.44 mg/dL (0.7-1.3)
[2018-08-12 18:45] VITALS: BP 120/77
[2018-08-13 01:03] VITALS: BP 116/55
[2018-08-13] MEDS: OXYcodone 5 MG/5 ML ORAL.SOL UDC GT PRN ×6 (01:09→22:20)
[2018-08-13] MEDS: PANTOPRAZOLE 40 MG IV IVPush SCH (05:46)
[2018-08-13 06:49] VITALS: BP 121/63
[2018-08-13] MEDS: ENOXAPARIN 40 MG/0.4 ML SQ SCH (10:02)
[2018-08-13] MEDS: NICOTINE 7 MG/24 HR PATCH.TD24 TD SCH (10:02)
[2018-08-13 13:56] VITALS: BP 110/61
[2018-08-13 18:44] VITALS: BP 111/62
[2018-08-14 01:16] VITALS: BP 120/64
[2018-08-14] MEDS: OXYcodone 5 MG/5 ML ORAL.SOL UDC GT PRN ×5 (02:18→20:09)
[2018-08-14 05:12] LABS: BASOPHILS # (AUTO) 0.01 x10^3/uL (0-0.1); BASOPHILS % (AUTO) 0 % (0-1); EOSINOPHILS # (AUTO) 0.26 x10^3/uL (0-0.4); EOSINOPHILS % (AUTO) 3 % (1-7); LYMPHOCYTES # (AUTO) 1.21 x10^3/uL (1-3.4); LYMPHOCYTES % (AUTO) 14 % (22-44); MD NO; MEAN CORPUSCULAR HEMOGLOBIN 30.9 pg (27.5-34.5); MEAN CORPUSCULAR HGB CONC 32.9 g/dL (33.2-36.2); MEAN CORPUSCULAR VOLUME 93.7 fL (81-97); MEAN PLATELET VOLUME 8.4 fL (7.4-10.4); MONOCYTES % (AUTO) 6 % (2-9); NEUTROPHILS # (AUTO) 6.47 x10^3/uL (1.8-6.8); NEUTROPHILS % (AUTO) 77 % (42-75); PLATELET COUNT 266 x10^3/uL (130-400); RED BLOOD COUNT 4.12 x10^6/uL (4.38-5.82); RED CELL DISTRIBUTION WIDTH 13.9 % (9.4-14.8)
[2018-08-14] MEDS: PANTOPRAZOLE 40 MG IV IVPush SCH (06:09)
[2018-08-14 06:31] LABS: ANION GAP 4 mmol/L (5-15); CALCIUM 9.7 mg/dL (8.5-10.1); CHLORIDE 98 mmol/L (98-107)
[2018-08-14 07:12] VITALS: BP 102/50
[2018-08-14] MEDS: ENOXAPARIN 40 MG/0.4 ML SQ SCH (08:17)
[2018-08-14] MEDS: NICOTINE 7 MG/24 HR PATCH.TD24 TD SCH (08:17)
[2018-08-14 12:35] VITALS: BP 100/46
[2018-08-14 20:05] VITALS: BP 119/68
[2018-08-15] MEDS: OXYcodone 5 MG/5 ML ORAL.SOL UDC GT PRN ×6 (00:58→21:24)
[2018-08-15 01:56] VITALS: BP 105/50
[2018-08-15] MEDS: PANTOPRAZOLE 40 MG IV IVPush SCH (06:25)
[2018-08-15 07:00] VITALS: BP 113/64
[2018-08-15] MEDS: NICOTINE 7 MG/24 HR PATCH.TD24 TD SCH (08:11)
[2018-08-15] MEDS: FENTANYL 50 MCG PATCH TD SCH (08:12)
[2018-08-15] MEDS: ENOXAPARIN 40 MG/0.4 ML SQ SCH (08:14)
[2018-08-15] MEDS ORDERED: LORazepam 1MG TABLET GT ONE (09:00)
[2018-08-15 14:00] VITALS: BP 122/66
[2018-08-15 18:53] VITALS: BP 147/86
[2018-08-16 01:39] VITALS: BP 119/67
[2018-08-16 04:23] LABS: BASOPHILS % (AUTO) 1 % (0-1); EOSINOPHILS # (AUTO) 0.22 x10^3/uL (0-0.4); EOSINOPHILS % (AUTO) 3 % (1-7); LYMPHOCYTES # (AUTO) 1.02 x10^3/uL (1-3.4); LYMPHOCYTES % (AUTO) 12 % (22-44); MD NO; MEAN CORPUSCULAR HEMOGLOBIN 31.2 pg (27.5-34.5); MEAN CORPUSCULAR HGB CONC 33.2 g/dL (33.2-36.2); MEAN CORPUSCULAR VOLUME 93.9 fL (81-97); MEAN PLATELET VOLUME 8.6 fL (7.4-10.4); MONOCYTES # (AUTO) 0.53 x10^3/uL (0.2-0.8); MONOCYTES % (AUTO) 6 % (2-9); NEUTROPHILS # (AUTO) 6.81 x10^3/uL (1.8-6.8); NEUTROPHILS % (AUTO) 78 % (42-75); PLATELET COUNT 265 x10^3/uL (130-400); RED BLOOD COUNT 4.03 x10^6/uL (4.38-5.82); RED CELL DISTRIBUTION WIDTH 13.7 % (9.4-14.8)
[2018-08-16 04:36] LABS: ANION GAP 6 mmol/L (5-15); CALCIUM 9.4 mg/dL (8.5-10.1); CHLORIDE 99 mmol/L (98-107); CREATININE 0.37 mg/dL (0.7-1.3)
[2018-08-16] MEDS: PANTOPRAZOLE 40 MG IV IVPush SCH (06:40)
[2018-08-16 07:26] VITALS: BP 104/51
[2018-08-16] MEDS: ENOXAPARIN 40 MG/0.4 ML SQ SCH (08:44)
[2018-08-16] MEDS: NICOTINE 7 MG/24 HR PATCH.TD24 TD SCH (08:44)
[2018-08-16] MEDS: OXYcodone 5 MG/5 ML ORAL.SOL UDC GT PRN ×4 (08:44→21:15)
[2018-08-16 13:03] VITALS: BP 131/70
[2018-08-16 20:01] VITALS: BP 113/66
[2018-08-17] MEDS: OXYcodone 5 MG/5 ML ORAL.SOL UDC GT PRN ×4 (01:23→20:31)
[2018-08-17 01:34] VITALS: BP 108/61
[2018-08-17] MEDS: PANTOPRAZOLE 40 MG IV IVPush SCH (05:48)
[2018-08-17 07:50] VITALS: BP 121/58
[2018-08-17] MEDS: ENOXAPARIN 40 MG/0.4 ML SQ SCH (09:53)
[2018-08-17] MEDS: NICOTINE 7 MG/24 HR PATCH.TD24 TD SCH (09:53)
[2018-08-17 14:09] VITALS: BP 115/69
[2018-08-17 18:46] VITALS: BP 150/67
[2018-08-18 00:25] VITALS: BP 111/61
[2018-08-18] MEDS: OXYcodone 5 MG/5 ML ORAL.SOL UDC GT PRN ×3 (00:33→11:07)
[2018-08-18] MEDS: PANTOPRAZOLE 40 MG IV IVPush SCH (06:10)
[2018-08-18 08:00] VITALS: BP 129/75
[2018-08-18] MEDS: ENOXAPARIN 40 MG/0.4 ML SQ SCH (08:53)
[2018-08-18] MEDS: FENTANYL 50 MCG PATCH TD SCH (08:53)
[2018-08-18] MEDS: NICOTINE 7 MG/24 HR PATCH.TD24 TD SCH (08:54)
[2018-08-18] MEDS ORDERED: OXYC5SOL8 GT (09:05)
[2018-08-18] MEDS ORDERED: FENT1PAT76 TD (09:05)
[2018-08-18] MEDS ORDERED: NICO-485 TD (09:05)
[2018-08-18] MEDS ORDERED: ONDA4TAB7 PO (09:05)
[2018-08-18] MEDS ORDERED: ENOX40SY4 SQ (09:06)
[2018-08-18] MEDS ORDERED: PANT40TA3 PO (09:06)
== END 2018-08-18 11:36 | disposition short-term general hospital (02) | DRG 840 ==
LOC: 4NOR 01:57 → 3NW 07-23 16:53
PROVIDERS: ADMIT Internal Medicine; ATTEND Internal Medicine
PROC: 0DH64UZ Insertion of Feeding Device into Stomach, Percutaneous Endoscopic Approach (ICD-10-PCS; 2018-07-29)
PROC: 0TJB8ZZ Inspection of Bladder, Via Natural or Artificial Opening Endoscopic (ICD-10-PCS; principal; 2018-07-31 11:00)
PROC: 0DJD8ZZ Inspection of Lower Intestinal Tract, Via Natural or Artificial Opening Endoscopic (ICD-10-PCS; 2018-08-03)
DX: C77.0 Secondary and unspecified malignant neoplasm of lymph nodes of head, face and neck (principal); J69.0 Pneumonitis due to inhalation of food and vomit; E43 Unspecified severe protein-calorie malnutrition; E87.0 Hyperosmolality and hypernatremia; K62.5 Hemorrhage of anus and rectum; J38.00 Paralysis of vocal cords and larynx, unspecified; Z66 Do not resuscitate; K21.9 Gastro-esophageal reflux disease without esophagitis; J38.01 Paralysis of vocal cords and larynx, unilateral; G89.3 Neoplasm related pain (acute) (chronic); G52.9 Cranial nerve disorder, unspecified; E78.1 Pure hyperglyceridemia; E78.5 Hyperlipidemia, unspecified; G47.33 Obstructive sleep apnea (adult) (pediatric); E87.6 Hypokalemia; E83.42 Hypomagnesemia; I25.10 Atherosclerotic heart disease of native coronary artery without angina pectoris; F17.210 Nicotine dependence, cigarettes, uncomplicated; C10.9 Malignant neoplasm of oropharynx, unspecified; K64.8 Other hemorrhoids; I65.02 Occlusion and stenosis of left vertebral artery; R13.10 Dysphagia, unspecified; C11.9 Malignant neoplasm of nasopharynx, unspecified; E87.8 Other disorders of electrolyte and fluid balance, not elsewhere classified; Z88.5 Allergy status to narcotic agent; Z79.899 Other long term (current) drug therapy
CPT/HCPCS: 36415; 74230; 76000; J3490; J7030; J7042; J7121; 49440; 70543; 71260; 74177; 74181; 80048; 80053; 80061; 81001; 81003; 82040; 82565; 83036; 83735; 84100; 84439; 84443; 85025; 85610; 88112; 99156; 99157; A9585; B4087; G0378; J0171; J0295; J0690; J1100; J1170; J1644; J1650; J1885; J2250; J2405; J2704; J3010; J3480; J7070; C9113; J0330; J2310; J3475; J7040

== ENCOUNTER 2018-08-30 11:00 | Outpatient (CLI) | payer OTHER ==
[~2018-08-30 11:00] MED LIST: ASPI325T17 PO; CHOL200040 PO; ENOX40SY4 SQ; FENO145T30 PO; FENT1PAT76 TD; MULT-658 PO; NICO-485 TD; OMEG1CAP6 PO; ONDA4TAB7 PO; OXYB15TA PO; OXYC5SOL8 GT; PANT20TA3 PO; PANT40TA3 PO; PREG100C PO; ROSU10TA2 PO; SULF1TAB23 PO
== END 2018-08-30 23:59 | disposition home or self-care (01) ==
LOC: ROC 11:00
PROVIDERS: ATTEND Radiology Radiation Oncology
DX: C76.0 Malignant neoplasm of head, face and neck (principal)
CPT/HCPCS: 99214; G0463